=== PATIENT | male | born 1965 | race African-American/Black ===

== ENCOUNTER 2021-12-16 08:29 | Emergency (ER) | payer MEDICARE, OTHER ==
--- NOTE | 2021-12-16 09:34 | Diagnostic Imaging Report ---
Indication: Pain with squats. Examination: Right knee 12/16/2021 FINDINGS: 3 views of the knee. 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 If there is point tenderness an acute fracture through the spur along the tibial tuberosity is not excluded. Well-corticated osseous fragment inferior to the patella appears chronic. The remaining osseous structures intact with the joint spaces preserved. There is no significant joint effusion. IMPRESSION: 1. Lucency through the spur along the tibial tuberosity which could be due to a prior history of [place]-Schlatter disease but if there is focal point tenderness fracture through the spur is not excluded. Correlate with symptoms. Dictated by: Dictated on workstation # [id number]
--- NOTE | 2021-12-16 09:38 | ED Lower Extremity ---
General Chief Complaint: Lower Extremity Stated Complaint: RT KNEE PAIN Source: patient History of Present Illness Date Seen by Provider: December 16, 2021 Time Seen by Provider: 09:02 Initial Comments 56 yo male presenting to ED with complaint of right knee pain and swelling for last 2 weeks. 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 On his second squat he felt and heard a pop in his right knee. He had instant pain and swelling to right knee and was unable to continue with workout. He had swelling get worse last week so he was seen at [place] ED and reports they examined his knee and then gave him a pain shot and discharge. He had already made an appointment to follow up with Orthopedics in [place] for December 23 when he had initial injury. He had tried to use a knee brace from [facility] but still had swelling and pain. Swelling has spread down his leg. He has run out of the medicine prescribed by [place] for pain. Since his girlfriend was here in the ED being seen for a migraine headache he decided to check in and be seen for his knee pain since he has a week before Orthopedics appt. He denies hx of chronic knee pain or prior knee issues. Onset: other (about 2 weeks ago) Severity: moderate Method of Injury: sports injury Modifying Factors: Worse With Movement Allergies and Home Medications Allergies Coded Allergies: No Known Drug Allergies (Unverified , 12/16/21) Patient Home Medication List Home Medication List Reviewed: Yes Ibuprofen (Ibuprofen) 800 Mg Tablet, 800 MG PO Q8H PRN for PAIN Prescribed by: MUKESH ROSALES on 12/16/21 1027 Review of Systems Constitutional: No chills, No fever EENTM: no symptoms reported Respiratory: no symptoms reported Cardiovascular: no symptoms reported Gastrointestinal: no symptoms reported Genitourinary: no symptoms reported Musculoskeletal: see HPI Skin: No change in color Psychiatric/Neurological: Denies Numbness, Denies Paresthesia Past Yebflns-Cgneay-Kmedwf Hx Patient Social History Tobacco Use?: No Use of E-Cig and/or Vaping dev: No Substance use?: No Alcohol Use?: No Past Medical History Surgery/Hospitalization HX: Left shoulder surgery Physical Exam Vital Signs Capillary Refill : Height, Weight, BMI Height: '" Weight: lbs. oz. kg; BMI Method: General Appearance: WD/WN, no apparent distress Cardiovascular: normal peripheral pulses Knees: right knee pain, right knee soft tissue tenderness, right knee swelling (mild), right knee other (laxity with valgus and varus stress. negative drawer sign) Neurologic/Psychiatric: alert, oriented x 3 Skin: normal color, warm/dry Progress/Results/Core Measures Results/Orders My Orders Orders - MUKESH ROSALES MD Knee 3 View Right (12/16/21 09:21) Knee Immobilizer (12/16/21 09:21) Progress Progress Note #1: Progress Note Check xrays of the right knee for bony injury. advised pt he may need MRI to look for cartilage or soft tissue injury. Knee immobilizer to help stabilize and rest knee until he sees Orthopedics next week. 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 Advised to check with Ortho and keep immobilizer in place at all times except when he bathes. Departure Impression Primary Impression: Sprain of collateral ligament of right knee Qualified Codes: S83.401A - Sprain of unspecified collateral ligament of right knee, initial encounter Additional Impression: Pain and swelling of right knee Disposition: HOME, SELF-CARE Condition: Stable Departure-Patient Inst. Decision time for Depature: 10:23 Referrals: NO,LOCAL PHYSICIAN (PCP/Family) Primary Care Physician Patient Instructions: Knee Sprain ED, Knee Brace ED, Knee Pain ED, Using Cold for Pain Add. Discharge Instructions: Wear the knee immobilizer at all times except for bathing. Follow-up with your orthopedic doctor next week as scheduled. They may need to do additional imaging to better look at your knee joint. Make sure to take the copy of the x-rays from today for your appointment Try to elevate your knee when you are not walking. Apply ice for 20 to 30 minutes every few hours as needed for pain and swelling. All discharge instructions reviewed with patient and/or family. Voiced understanding. Scripts Ibuprofen (Ibuprofen) 800 Mg Tablet 800 MG PO Q8H PRN for PAIN for 10 Days, #30 TAB 0 Refills Prov: MUKESH ROSALES MD 12/16/21 MUKESH ROSALES MD December 16, 2021 09:38
[2021-12-16] MEDS ORDERED: IBUP-1780 PO (10:27)
== END 2021-12-16 10:36 | disposition home or self-care (01) ==
LOC: ER FS 08:31
DX: S83.401A Sprain of unspecified collateral ligament of right knee, initial encounter (principal); X50.1XXA Overexertion from prolonged static or awkward postures, initial encounter; Y92.39 Other specified sports and athletic area as the place of occurrence of the external cause; Y93.B9 Activity, other involving muscle strengthening exercises
CPT/HCPCS: 73562; 99282; L1830

== ENCOUNTER 2022-04-12 17:43 | Emergency (ER) | payer MEDICARE ==
[~2022-04-12] VITALS: Ht 177.8 cm; Wt 93.8 kg
[~2022-04-12 17:43] MED LIST: IBUP-1780 PO
--- NOTE | 2022-04-12 18:35 | ED Back Pain ---
General Chief Complaint: Back Problems Stated Complaint: LOWER BACK PAIN Nursing Triage Note: PT AMBULATE TO ROOM FS02 WITH C/O BACK PAIN STARTING TUESDAY. PT STATES HE WAS HELPING A FRIEND MOVE AND HIS BACK STARTED HURTING. PT REPORTS TAKING TYLENOL AT 1230 TODAY FOR PAIN. Source of Information: Patient Exam Limitations: No Limitations History of Present Illness Date Seen by Provider: Apr 12, 2022 Time Seen by Provider: 18:20 Initial Comments Patient to the ER by private conveyance from home with chief complaint of low back pain for the past 2 days after helping a friend move. He feels spasming and pain in his right lower back not radiating up or down. He feels stiff in his back. He is using Tylenol for his pain. He also was recently contacted by an ex from 3 months ago that she had trichomonas and he would like to be tested for STDs. He is not having any urinary symptoms of discharge dysuria diarrhea fever chills cough. He is not on blood thinners nor does have a history of heart disease. Allergies and Home Medications Allergies Coded Allergies: No Known Drug Allergies (Unverified , 12/16/21) Patient Home Medication List Home Medication List Reviewed: Yes Ibuprofen (Ibuprofen) 800 Mg Tablet, 800 MG PO Q8H PRN for PAIN Prescribed by: MUKESH ROSALES on 12/16/21 1027 Review of Systems Constitutional: No chills, No diaphoresis EENTM: No ear discharge, No ear pain Respiratory: No cough, No short of breath Cardiovascular: No edema, No palpitations Gastrointestinal: No abdominal pain, No nausea, No vomiting Genitourinary: No dysuria, No frequency Musculoskeletal: No back pain, No joint pain All Other Systems Reviewed Negative Unless Noted: Yes Past Vyxozxz-Usfnfi-Dnbwmo Hx Patient Social History Tobacco Use?: No Smoking Status: Never a Smoker Smokeless Tobacco Frequency: Never a User Use of E-Cig and/or Vaping dev: No Use of E-Cig and/or Vaping Rahul: Never a User Substance use?: No Alcohol Use?: No Pt feels they are or have been: No Immunizations Up To Date COVID19 Vaccine [employer] Developer: MODERNA Past Medical History Surgery/Hospitalization HX: Left shoulder surgery Physical Exam Vital Signs Vital Signs - First Documented 04/12/22 17:51 Temp 36.7 Pulse 66 Resp 16 B/P (MAP) 138/76 (96) O2 Delivery Room Air Capillary Refill : Less Than 3 Seconds Height, Weight, BMI Height: '" Weight: lbs. oz. kg; 29.00 BMI Method: General Appearance: WD/WN, Mild Distress HEENT: PERRL/EOMI, Pharynx Normal, Moist Mucous Membranes Neck: Full Range of Motion, Normal Inspection Cardiovascular: Regular Rate, Rhythm, No Edema, No Gallop, Normal Peripheral Pulses Respiratory: Chest Non Tender, Normal Breath Sounds, No Accessory Muscle Use, No Respiratory Distress Peripheral Pulses: 2+ Radial Pulses (R), 2+ Radial Pulses (L) Gastrointestinal: Normal Bowel Sounds, Non Tender, Soft Neurologic/Psychiatric: Alert, Oriented x3 Skin: Normal Color, Warm/Dry Procedures/Interventions Point tenderness injection at the right side of the L5-S1 facet joint. Adm ixture of 1 cc of lidocaine 2% with epinephrine and half percent Marcaine 1 mL mixed with 1 mL of Depo-Medrol 40 mg/mL. Using Z track method we cleaned the site with alcohol, use a 25-gauge 1/2 inch needle to insert, withdraw did not receive any blood back and inject the solution in and around the L5-S1 facet joint. Patient tolerated procedure well. Progress/Results/Core Measures Results/Orders My Orders Orders - VITALIY MATTSON Ua Culture If Indicated (04/12/22 18:31) Ketorolac Injection (Toradol Injection) (04/12/22 18:45) Orphenadrine Inj (Ed Only) (Norflex Inje (04/12/22 18:45) Methylprednisolone Acetate Inj (Depo-Med (04/12/22 18:45) Bupivacaine 0.5% Injection (Sensorcaine (04/12/22 18:45) Ed Iv/Invasive Line Start (04/12/22 18:33) Ceftriaxone 1 Gm Pre-Mix (Rocephin 1 Gm (04/12/22 18:45) Azithromycin Tablet (Zithromax Tablet) (04/13/22 09:00) Ketorolac Injection (Toradol Injection) (04/12/22 18:45) Orphenadrine Inj (Ed Only) (Norflex Inje (04/12/22 18:45) Syphilis Antibody Screen (04/12/22 18:46) Neis Jonathan Dna Urine Test (04/12/22 18:46) Chlamydia Trachomatis Urine (04/12/22 18:46) Medications Given in ED Current Medications Medications Dose Ordered Sig/Delroy Route Start Time Stop Time Status Last Admin Dose Admin Ceftriaxone Sodium/Dextrose 50 ml @ 100 mls/hr ONCE ONCE IV 04/12/22 18:45 04/12/22 19:14 04/12/22 18:55 100 MLS/HR Ketorolac Tromethamine 30 mg ONCE ONCE IVP 04/12/22 18:45 04/12/22 18:46 DC 04/12/22 18:55 30 MG Orphenadrine Citrate 60 mg ONCE ONCE IV 04/12/22 18:45 04/12/22 18:46 DC 04/12/22 18:54 60 MG Vital Signs/I&O 04/12/22 17:51 Temp 36.7 Pulse 66 Resp 16 B/P (MAP) 138/76 (96) O2 Delivery Room Air Blood Pressure Mean: 96 Progress Progress Note : Time: 19:01 Progress Note Rocephin and azithromycin to treat for common STDs. No trichomonas was seen on the urine however there was evidence of UTI so we will put him on some doxycycline to cover. We will give him Norflex and Toradol shot as well as a point tenderness injection of Depo-Medrol, lidocaine and Marcaine. We will put him out with some cyclobenzaprine and naproxen 500 mg. Departure Impression Primary Impression: Lumbago Qualified Codes: M54.50 - Low back pain, unspecified Additional Impression: UTI (urinary tract infection) Qualified Codes: N30.01 - Acute cystitis with hematuria Disposition: HOME, SELF-CARE Condition: Stable Departure-Patient Inst. Decision time for Depature: 19:03 Referrals: NO,LOCAL PHYSICIAN (PCP/Family) Primary Care Physician Patient Instructions: Asymptomatic Bacteriuria, Low Back Pain ED Add. Discharge Instructions: Make sure you are drinking plenty of fluids. Use ice for the first couple days for 20 minutes every 2 hours while awake. Warm moist heat and topical creams such as icy hot or creams with capsaicin oil are often helpful. Tylenol 650 mg every 8 hours as necessary for pain. Start a regimen of Naproxen 500 mg twice a day. The steroid should kick in about 12 to 24 hours and reduce inflammation in your back. It will last for about 5 to 7 days. If you have muscle spasms again in your back then you may take cyclobenzaprine/Flexeril 1 tablet every 8 hours as necessary. Flexeril will cause drowsiness and you should be cautious when combining this with hydrocodone which will also cause drowsiness. Stay active moving around the house and doing your stretching exercises. Do not lift, push or pull greater than 20 pounds until cleared by a doctor. Obtain a back brace and wear it on the days that you need it. Follow the stretching exercises and consider engaging in a course of physical therapy. You may follow-up with [facility] physical therapy by calling for a no upfront cost evaluation at [phone]. You should also seek help through your primary care office and managing your symptoms. Promptly return to the ER if you experience numbness in your saddle region, inability to urinate, or falls caused by weakness or numbness in your legs. Doxycycline 1 capsule twice a day for a week to treat urinary tract infection. We will call you if any of your cultures come back positive. You can take a bath with 1 capful of bleach in warm water once or twice a week for 1 month to help reduce your risk of abscesses or you may use surgical scrub, chlorhexidine instead of bleach as it can be softer on the skin. Do not use it all the time as it will get rid of your normal, good bacteria. All discharge instructions reviewed with patient and/or family. Voiced understanding. Scripts Cyclobenzaprine HCl (Cyclobenzaprine HCl) 10 Mg Tablet 10 MG PO Q8H PRN for SPASMS, #20 TAB 0 Refills Prov: VITALIY MATTSON 04/12/22 Naproxen (Naprosyn) 500 Mg Tablet 500 MG PO BID, #30 TAB 0 Refills Prov: VITALIY MATTSON 04/12/22 Doxycycline Hyclate (Doxycycline Hyclate) 100 Mg Tablet 100 MG PO BID for 7 Days, #14 TAB 0 Refills Prov: VITALIY MATTSON 04/12/22 Work/School Note: Work Release Form Date Seen in the Emergency Department: Apr 12, 2022 Return to Work: Apr 13, 2022 Restrictions: Need Release from Doctor Other Restrictions Listed Below: Do not lift push or pull greater than 40 pounds until 04/26/2022. VITALIY MATTSON Apr 12, 2022 18:35
[2022-04-12] MEDS ORDERED: ORPHENADRINE 60 MG/2 ML (NORFLEX) AMP (ED ONLY) IM ONE (18:45)
[2022-04-12] MEDS ORDERED: methylPREDNISolone 40 MG/ML (DEPO MEDROL) VIAL IM ONE (18:45)
[2022-04-12] MEDS ORDERED: cefTRIAXone 1 GM PRE-MIX 50 ML IV ONE (18:45)
[2022-04-12] MEDS ORDERED: KETOROLAC 60 MG/2 ML VIAL IM ONE (18:45)
[2022-04-12] MEDS ORDERED: ORPHENADRINE 60 MG/2 ML (NORFLEX) AMP (ED ONLY) IV ONE (18:45)
[2022-04-12] MEDS ORDERED: KETOROLAC 30 MG/ML VIAL IVP ONE (18:45)
[2022-04-12] MEDS ORDERED: BUPIVACAINE 0.5% 30 ML (SENSORCAINE) VIAL INJ ONE (18:45)
[2022-04-12] MEDS ORDERED: CYCL10TA25 PO (19:19)
[2022-04-12] MEDS ORDERED: DOXY100T2 PO (19:19)
[2022-04-12] MEDS ORDERED: NAPR-1071 PO (19:19)
[2022-04-12 19:24] VITALS: BP 126/72
[2022-04-12] MEDS ORDERED: AZITHROMYCIN 250 MG TAB (ZITHROMAX) PO ONE ×2 (19:38→19:45)
[2022-04-12 21:13] LABS: CLARITY,URINE CLEAR; COLOR,URINE YELLOW
[2022-04-12 21:14] LABS: BACTERIA,URINE NEGATIVE /HPF; BILIRUBIN,URINE NEGATIVE (NEGATIVE); GLUCOSE, URINE (UA) NEGATIVE (NEGATIVE); KETONES,URINE NEGATIVE (NEGATIVE); LEUKOCYTE ESTERASE ,URINE TRACE (NEGATIVE); NITRITE,URINE NEGATIVE (NEGATIVE); PROTEIN,URINE NEGATIVE (NEGATIVE); RBC,URINE RARE /HPF; SQUAMOUS EPITHELIAL CELL,UR 0-2 /HPF
[2022-04-13] MEDS ORDERED: AZITHROMYCIN 250 MG TAB (ZITHROMAX) PO SCH (09:00)
== END 2022-04-12 19:26 | disposition home or self-care (01) ==
LOC: EDUNIT# 17:43 → ER FS 17:44
DX: N39.0 Urinary tract infection, site not specified (principal)
CPT/HCPCS: 36415; 81000; 86780; 87088; 87491; 87591; 99284